=== PATIENT | male | born 1970 | race Caucasian/White ===

== ENCOUNTER → 2016-09-27 | Outpatient (CLI) | payer BC ==
[2016-09-27 07:20] LABS: Basophils # (A) 0.1 k/uL (0-0.2); Basophils % (A) 2 %; CH 30.6; CHCM 33.7; Eosinophils # (A) 0.2 k/uL (0-0.7); Eosinophils % (A) 2 %; HCT 46.7 % (39.0-53.0); HDW 2.46; Luc # (Auto) 0.24; Luc % (Auto) 4; Lymphocytes # (A) 1.8 k/uL (1.0-4.8); Lymphocytes % (A) 29 %; MCH 31.4 pg (25.0-35.0); MCHC 34.4 g/dL (31.0-37.0); MCV 91.3 fL (80.0-100.0); Mean Platelet Volume 7.7; Monocytes # (A) 0.5 k/uL (0-1.0); Monocytes % (A) 7 %; Neutrophils # (A) 3.4 k/uL (1.3-7.7); Neutrophils % (A) 55 %; RBC 5.11 m/uL (4.30-5.90); RDW 13.1 % (11.5-15.5); WBC 6.1 k/uL (3.8-10.6); WBC (Perox) 6.39
[2016-09-27 10:34] LABS: ALT 35 U/L (21-72); AST 29 U/L (17-59); Alkaline Phosphatase 74 U/L (38-126); Anion Gap 10 mmol/L; Blood Urea Nitrogen 15 mg/dL (9-20); Calcium 9.4 mg/dL (8.4-10.2); Carbon Dioxide 25 mmol/L (22-30); Chloride 108 mmol/L (98-107); Cholesterol 164 mg/dL (<200); Glucose 97 mg/dL (74-99); HDL Cholesterol 37 mg/dL (40-60); Non-African American GFR(MDRD) >60 (>60 ml/min/1.73 sqM); Potassium 4.9 mmol/L (3.5-5.1); Sodium 143 mmol/L (137-145); Total Bilirubin 0.8 mg/dL (0.2-1.3); Total Protein 7.1 g/dL (6.3-8.2); Triglycerides 180 mg/dL (<150)
[2016-09-27 11:23] LABS: Vitamin B12 367 pg/mL (239-931)
== END | disposition home or self-care (01) ==
LOC: LABWHC1 06:38
PROVIDERS: ATTEND Family Medicine
DX: E78.5 Hyperlipidemia, unspecified (principal); I10 Essential (primary) hypertension; R53.83 Other fatigue
CPT/HCPCS: 36415; 80053; 80061; 82607; 84403; 84443; 85025

== ENCOUNTER → 2017-04-12 | Outpatient (CLI) | payer BC ==
[2017-04-12 07:36] LABS: ALT 39 U/L (21-72); AST 27 U/L (17-59); Alkaline Phosphatase 68 U/L (38-126); Anion Gap 10 mmol/L; Blood Urea Nitrogen 16 mg/dL (9-20); Calcium 9.6 mg/dL (8.4-10.2); Carbon Dioxide 24 mmol/L (22-30); Chloride 107 mmol/L (98-107); Cholesterol 169 mg/dL (<200); Glucose 107 mg/dL (74-99); HDL Cholesterol 42 mg/dL (40-60); Non-African American GFR(MDRD) >60 (>60 ml/min/1.73 sqM); Potassium 5.1 mmol/L (3.5-5.1); Sodium 141 mmol/L (137-145); Total Bilirubin 0.4 mg/dL (0.2-1.3); Total Protein 7.3 g/dL (6.3-8.2)
== END | disposition home or self-care (01) ==
LOC: LABWHC1 06:36
PROVIDERS: ATTEND Family Medicine
DX: E78.5 Hyperlipidemia, unspecified (principal)
CPT/HCPCS: 36415; 80053; 80061

== ENCOUNTER → 2018-01-02 | Outpatient (CLI) | payer BC ==
[2018-01-02 07:31] LABS: Basophils # (A) 0.1 k/uL (0-0.2); Basophils % (A) 1 %; Eosinophils # (A) 0.1 k/uL (0-0.7); Eosinophils % (A) 2 %; HGB 16.1 gm/dL (13.0-17.5); Lymphocytes # (A) 1.7 k/uL (1.0-4.8); Lymphocytes % (A) 20 %; MCH 30.1 pg (25.0-35.0); MCHC 33.6 g/dL (31.0-37.0); MCV 89.6 fL (80.0-100.0); Mean Platelet Volume 7.1; Monocytes # (A) 0.7 k/uL (0-1.0); Monocytes % (A) 8 %; Neutrophils # (A) 5.5 k/uL (1.3-7.7); Neutrophils % (A) 68 %; Platelet Count 256 k/uL (150-450); RBC 5.35 m/uL (4.30-5.90); RDW 12.9 % (11.5-15.5); WBC 8.2 k/uL (3.8-10.6)
[2018-01-02 07:38] LABS: ALT 35 U/L (21-72); AST 30 U/L (17-59); Albumin 4.5 g/dL (3.5-5.0); Alkaline Phosphatase 75 U/L (38-126); Anion Gap 12 mmol/L; Blood Urea Nitrogen 15 mg/dL (9-20); Calcium 9.5 mg/dL (8.4-10.2); Carbon Dioxide 25 mmol/L (22-30); Chloride 105 mmol/L (98-107); Cholesterol 176 mg/dL (<200); Glucose 112 mg/dL (74-99); HDL Cholesterol 43 mg/dL (40-60); LDL Cholesterol,Calculated 110 mg/dL (0-99); Potassium 4.7 mmol/L (3.5-5.1); Sodium 142 mmol/L (137-145); Total Bilirubin 0.5 mg/dL (0.2-1.3); Total Protein 7.2 g/dL (6.3-8.2); Triglycerides 114 mg/dL (<150)
== END | disposition home or self-care (01) ==
LOC: LABWHC1 06:33
PROVIDERS: ATTEND Family Medicine
DX: E78.5 Hyperlipidemia, unspecified (principal); I10 Essential (primary) hypertension
CPT/HCPCS: 36415; 80053; 80061; 85025

== ENCOUNTER → 2018-12-22 | Outpatient (CLI) | payer BC ==
[2018-12-22 11:28] LABS: African American GFR (CKD) 121.6 (60.0-200.0); Anion Gap 7.8 mmol/L (4.00-12.00); BUN/Creat Ratio 21.25 Ratio (12.00-20.00); Calcium 9.5 mg/dL (8.7-10.3); Carbon Dioxide 24.2 mmol/L (21.6-31.8); Potassium 5.3 mmol/L (3.5-5.5)
== END | disposition home or self-care (01) ==
LOC: LABWHC1 06:42
PROVIDERS: ATTEND Nurse Practitioner Adult Health
DX: I10 Essential (primary) hypertension (principal); E78.5 Hyperlipidemia, unspecified; F41.1 Generalized anxiety disorder
CPT/HCPCS: 36415; 80048; 80061

== ENCOUNTER 2020-03-31 10:44 | Day surgery (SDC) | payer BC ==
[2020-03-28 15:47] VITALS: BMI 30.4
[~2020-03-31 10:44] MED LIST: LACTATED RINGERS 1,000 ML IV SCH
[2020-03-31 11:03] VITALS: RESP 16; TEMP 97.7
[2020-03-31] MEDS ORDERED: PROPOFOL 10 MG/ML 20 ML VIAL IV ONE (11:21)
--- NOTE | 2020-03-31 11:52 | P.OP ---
Date of Procedure: 03/31/20 Preoperative Diagnosis: Screening Postoperative Diagnosis: Rectal polyp Procedure(s) Performed: Colonsocopy with hot snare polypectomy Anesthesia: MAC Surgeon: Harman Dickens Condition: stable Disposition: same day Description of Procedure: Patient is brought operative suite placed in left lateral decubitus position with sedation per department of anesthesia rectal exam was performed no gross abnormalities are noted scope was passed from the rectum to the cecum with the slowly withdrawn make sure to visualize all ingram the colon on the way out there is no abnormalities until the rectum there is one small polyp noted in the rectum this was removed via hot snare polypectomy. Scope was retroflexed no abnormalities were noted the scope was withdrawn patient artery procedure well no apparent complications he'll need a repeat colonoscopy in 5 years
[2020-03-31 12:15] VITALS: BP 117/78; PULSE 73
--- NOTE | 2020-04-04 10:56 | CDI ---
Date: 04.04.2020 CDS/Drilling Field Professional Name: Stacey Hobson Phone: If any questions, call Margo Tipton Fabrication Manager at [phone] Patient Name: Johnathan Mejía Admit Date 03.31.20 Discharge Date: 03.31.20 ATTENTION: The [facility] Coding Staff appreciate your assistance in clarifying documentation. Please respond to the clarification below the line at the bottom and electronically sign. The [facility] Coding staff will review the response and follow-up if needed. Please note: Queries are made part of the Legal Health Record. If you have any questions, please contact the Fabrication Manager. Dear Dr. Dickens In order to code to the greatest specificity and for the greatest reimbursement I need the following information: You removed a rectal polyp with hot snare poylpectomy, did you send this to pathology for review? Thank you for your kind consideration. Yes should have been sent. CARA
--- NOTE | 2020-04-13 11:48 | P.HPIHPCON ---
History of Present Illness H&P Date: 03/31/20 Screening colonoscopy Consent for Procedure: I have explained the operation/procedure to the patient, including the risks, benefits, side effects, alternative therapies (including not receiving the proposed treatment or service), the likelihood of the patient achieving his/her goals, and potential recuperation problems for the procedure/sedation/analgesia, as well as any blood products, if indicated. I also explained to the patient the risks, benefits and side effects of the alternatives, as well as the risks related to not receiving the proposed procedure, care, treatment, or services. Past Medical History Past Medical History: Hyperlipidemia, Hypertension History of Any Multi-Drug Resistant Organisms: None Reported Past Surgical History: Orthopedic Surgery Additional Past Surgical History / Comment(s): L shoulder surgery, L ear surgery as a child. [place] teeth. Past Anesthesia/Blood Transfusion Reactions: No Reported Reaction Smoking Status: Current every day smoker - Past Family History Mother Family Medical History: Cancer Additional Family Medical History / Comment(s): Kidney, Breast Medications and Allergies Home Medications Medication Instructions Recorded Confirmed Type ALPRAZolam [Xanax] 0.5 mg PO HS 03/28/20 03/31/20 History Aspirin [Adult Low Dose Aspirin EC] 81 mg PO DAILY 03/28/20 03/28/20 History Atorvastatin [Lipitor] 40 mg PO DAILY 03/28/20 03/31/20 History Nsaid (Unknown Dose) 1 tab PO DAILY 03/28/20 03/28/20 History Propranolol HCl [Inderal LA] 125 mg PO DAILY 03/28/20 03/31/20 History amLODIPine [Norvasc] 10 mg PO DAILY 03/28/20 03/31/20 History buPROPion [Wellbutrin] 75 mg PO DAILY 03/28/20 03/31/20 History Allergies Allergy/AdvReac Type Severity Reaction Status Date / Time Penicillins Allergy Nausea & Verified 03/31/20 10:55 Vomiting Surgical - Exam Osteopathic Statement: *. No significant issues noted on an osteopathic structural exam other than those noted in the History and Physical/Consult. Vital Signs Temp Pulse Resp BP Pulse Ox 97.7 F 70 16 131/76 97 03/31/20 10:59 03/31/20 10:59 03/31/20 10:59 03/31/20 10:59 03/31/20 10:59 - General well developed, well nourished, no distress - Respiratory normal expansion, normal respiratory effort - Abdomen Abdomen: soft, non tender Assessment and Plan Assessment: screening colonoscopy Plan: screening colonoscopy
== END 2020-03-31 12:43 | disposition home or self-care (01) ==
LOC: ORWHC2ENDO 10:44
PROVIDERS: ATTEND Student in an Organized Health Care Education/Training Program
DX: Z12.11 Encounter for screening for malignant neoplasm of colon (principal); K62.1 Rectal polyp; E78.5 Hyperlipidemia, unspecified; I10 Essential (primary) hypertension; F17.200 Nicotine dependence, unspecified, uncomplicated; Z98.890 Other specified postprocedural states; Z79.899 Other long term (current) drug therapy; Z79.82 Long term (current) use of aspirin; Z79.1 Long term (current) use of non-steroidal anti-inflammatories (NSAID); Z88.0 Allergy status to penicillin; Z80.51 Family history of malignant neoplasm of kidney; Z80.3 Family history of malignant neoplasm of breast
CPT/HCPCS: 45385; J2704

== ENCOUNTER → 2020-07-06 | Outpatient (CLI) | payer BC ==
--- NOTE | 2020-07-06 14:17 | XR ---
EXAMINATION TYPE: XR skull complete DATE OF EXAM: 07/06/2020 COMPARISON: NONE HISTORY: Possible foreign body within the inferior TECHNIQUE: 4 views submitted FINDINGS: Osseous structures intact. No acute fracture. No metallic foreign body identified. IMPRESSION: No metallic foreign body identified.
== END | disposition home or self-care (01) ==
LOC: RADXRMAIN 13:54
PROVIDERS: ATTEND Orthopaedic Surgery
DX: Z03.89 Encounter for observation for other suspected diseases and conditions ruled out (principal); Z18.10 Retained metal fragments, unspecified
CPT/HCPCS: 70260

== ENCOUNTER → 2021-03-09 | Outpatient (CLI) | payer BC ==
[2021-03-09 20:04] LABS: African American GFR (CKD) 80.7 (60.0-200.0); Albumin 4.6 g/dL (3.80-4.90); Albumin/Globulin Ratio 1.92 (1.60-3.17); Anion Gap 10.2 mmol/L (4.00-12.00); BUN/Creat Ratio 16.67 Ratio (12.00-20.00); Calcium 9.2 mg/dL (8.7-10.3); Carbon Dioxide 21.8 mmol/L (21.6-31.8); Chol/HDL Ratio 5.38; Globulin 2.4 g/dL (1.6-3.3); Non-African American GFR(CKD) 69.6 (60.0-200.0); PSA Annual Screen 0.6 ng/mL (0.0-4.0); Total Bilirubin 0.5 mg/dL (0.3-1.2)
== END | disposition home or self-care (01) ==
LOC: LABWHC1 07:04
PROVIDERS: ATTEND Nurse Practitioner Adult Health
DX: Z00.00 Encounter for general adult medical examination without abnormal findings (principal); E78.2 Mixed hyperlipidemia; I10 Essential (primary) hypertension; M13.0 Polyarthritis, unspecified
CPT/HCPCS: 80061; 80053; 83721; 36415; G0103

== ENCOUNTER → 2021-08-04 | Outpatient (CLI) | payer BC ==
[2021-08-04 19:50] LABS: Basophils # (A) 0.09 X 10*3/uL (0.00-0.10); Basophils % (A) 1.1 %; Eosinophils # (A) 0.13 X 10*3/uL (0.04-0.35); Eosinophils % (A) 1.6 %; HCT 49.9 % (39.6-50.0); HGB 15.8 g/dL (13.0-17.0); Lymphocytes # (A) 2.97 X 10*3/uL (0.90-5.00); Lymphocytes % (A) 36.8 %; MCH 29.9 pg (27.0-32.0); MCHC 31.7 g/dL (32.0-37.0); MCV 94.5 fL (80.0-97.0); Mean Platelet Volume 10.4 fL (9.5-12.2); Monocytes # (A) 0.76 X 10*3/uL (0.20-1.00); Monocytes % (A) 9.4 %; Neutrophils # (A) 4.11 X 10*3/uL (1.80-7.70); Neutrophils % (A) 50.9 %; Platelet Count 277 X 10*3/uL (140-440); RBC 5.28 X 10*6/uL (4.40-5.60); RDW 13.6 % (11.5-14.5); WBC 8.08 X 10*3/uL (4.50-10.00)
[2021-08-04 20:08] LABS: ALT 23 U/L (10-49); AST 26 U/L (14-35); African American GFR (CKD) 114.2 (60.0-200.0); Albumin 4.8 g/dL (3.8-4.9); Albumin/Globulin Ratio 1.71 (1.60-3.17); Alkaline Phosphatase 73 U/L (41-126); BUN/Creat Ratio 12.78 Ratio (12.00-20.00); Blood Urea Nitrogen 11.5 mg/dL (9.0-27.0); Calcium 9.6 mg/dL (8.7-10.3); Carbon Dioxide 23.4 mmol/L (20.0-27.5); Chloride 103 mmol/L (96-109); Chol/HDL Ratio 5.08 Ratio; Globulin 2.8 g/dL (1.6-3.3); Glucose 79 mg/dL (70-110); LDL Cholesterol,Calculated 106.6 mg/dL (0.0-131.0); Non-African American GFR(CKD) 98.5 (60.0-200.0); Potassium 4.8 mmol/L (3.5-5.5); Sodium 138 mmol/L (135-145); Total Protein 7.6 g/dL (6.2-8.2)
== END | disposition home or self-care (01) ==
LOC: LABWHC1 14:22
PROVIDERS: ATTEND Internal Medicine
DX: E78.2 Mixed hyperlipidemia (principal)
CPT/HCPCS: 36415; 80053; 80061; 84443; 85025

== ENCOUNTER → 2022-06-11 | Outpatient (CLI) | payer BC ==
[2022-06-11 10:44] LABS: Basophils % (A) 1.2 %; Eosinophils % (A) 2.4 %; HCT 49.4 % (39.6-50.0); Immature Grans, Automated 0.6 %; Lymphocytes # (A) 2.15 X 10*3/uL (0.90-5.00); Lymphocytes % (A) 26.3 %; MCH 30.8 pg (27.0-32.0); MCHC 32.4 g/dL (32.0-37.0); MCV 95.2 fL (80.0-97.0); Mean Platelet Volume 10.7 fL (9.5-12.2); Monocytes # (A) 0.76 X 10*3/uL (0.20-1.00); Monocytes % (A) 9.3 %; NRBC Per 100 WBC 0 /100 WBCS (0.0-0.0); Neutrophils # (A) 4.93 X 10*3/uL (1.80-7.70); Neutrophils % (A) 60.2 %; Platelet Count 285 X 10*3/uL (140-440); RBC 5.19 X 10*6/uL (4.40-5.60); RDW 13.8 % (11.5-14.5); WBC 8.19 X 10*3/uL (4.50-10.00)
[2022-06-11 11:02] LABS: ALT 26 U/L (10-49); AST 26 U/L (14-35); African American GFR (CKD) 115.2 (60.0-200.0); Albumin 4.6 g/dL (3.8-4.9); Alkaline Phosphatase 74 U/L (41-126); BUN/Creat Ratio 12.93 Ratio (12.00-20.00); Blood Urea Nitrogen 11.2 mg/dL (9.0-27.0); Calcium 9.6 mg/dL (8.7-10.3); Carbon Dioxide 22.9 mmol/L (20.0-27.5); Chloride 102 mmol/L (96-109); Chol/HDL Ratio 5.56 Ratio; Globulin 2.6 g/dL (1.6-3.3); Glucose 89 mg/dL (70-110); LDL Cholesterol,Calculated 117.1 mg/dL (0.0-131.0); Non-African American GFR(CKD) 99.4 (60.0-200.0); Potassium 4.9 mmol/L (3.5-5.5); Sodium 138 mmol/L (135-145); Total Protein 7.2 g/dL (6.2-8.2)
== END | disposition home or self-care (01) ==
LOC: LABWHC1 07:03
PROVIDERS: ATTEND Internal Medicine
DX: Z12.5 Encounter for screening for malignant neoplasm of prostate (principal); I10 Essential (primary) hypertension
CPT/HCPCS: 36415; 80053; 80061; 84153; 84439; 84443; 85025

== ENCOUNTER → 2023-08-20 | Outpatient (CLI) | payer BC ==
--- NOTE | 2023-08-20 20:54 | CTL ---
CORRECTED IMPRESSION: 1. LungRADS 2, benign. A solitary 3 mm right upper lobe pulmonary nodule on baseline screening. 2. COPD with mild emphysema. 3. Moderate to severe hepatic steatosis. Appropriate clinical management is advised. CT LUNG RAD AND CT CHEST RECOMMENDATION: Lung-Rad 2 Benign Appearance or Behavior: Continue annual sc reening with LDCT in 12 months. S Modifier (other clinically significant findings): S, see above regarding the patient's fatty liver.
== END | disposition home or self-care (01) ==
LOC: RADCTMAIN 16:11
PROVIDERS: ATTEND Internal Medicine
DX: Z12.2 Encounter for screening for malignant neoplasm of respiratory organs (principal); F17.210 Nicotine dependence, cigarettes, uncomplicated; R91.1 Solitary pulmonary nodule; J44.9 Chronic obstructive pulmonary disease, unspecified; J43.9 Emphysema, unspecified; K76.0 Fatty (change of) liver, not elsewhere classified
CPT/HCPCS: 71271

== ENCOUNTER → 2023-08-24 | Outpatient (CLI) | payer BC ==
[2023-08-24 13:19] LABS: Basophils % (A) 1.5 %; Eosinophils # (A) 0.14 X 10*3/uL (0.04-0.35); Eosinophils % (A) 2.1 %; HCT 48.2 % (39.6-50.0); HGB 15.9 g/dL (13.0-17.0); Lymphocytes # (A) 2.07 X 10*3/uL (0.90-5.00); Lymphocytes % (A) 30.7 %; MCH 30.5 pg (27.0-32.0); MCV 92.3 FL (80.0-97.0); Mean Platelet Volume 10.1 FL (9.5-12.2); Monocytes # (A) 0.73 X 10*3/uL (0.20-1.00); Monocytes % (A) 10.8 %; NRBC Per 100 WBC 0 X 10*3/uL (0.00-0.01); Neutrophils % (A) 54.8 %; Platelet Count 283 X 10*3/uL (140-440); RBC 5.22 X 10*6/uL (4.40-5.60); RDW 13.7 % (11.5-14.5); WBC 6.75 X 10*3/uL (4.50-10.00)
[2023-08-24 14:25] LABS: Chol/HDL Ratio 5.66 Ratio
[2023-08-24 14:26] LABS: ALT 27 U/L (10-49); AST 25 U/L (14-35); Albumin 4.6 g/dL (3.8-4.9); Alkaline Phosphatase 61 U/L (41-126); Blood Urea Nitrogen 12.6 mg/dL (9.0-27.0); Calcium 10.2 mg/dL (8.7-10.3); Chloride 102 mmol/L (96-109); Globulin 2.7 g/dL (1.6-3.3); Glucose 100 mg/dL (70-110); LDL Cholesterol,Calculated 121.2 mg/dL (0.0-131.0); Potassium 5.4 mmol/L (3.5-5.5); Sodium 140 mmol/L (135-145); Total Bilirubin 0.2 mg/dL (0.3-1.2); Total Protein 7.3 g/dL (6.2-8.2)
[2023-08-24 14:34] LABS: PSA Annual Screen 0.589 ng/mL (0.000-4.000)
== END | disposition home or self-care (01) ==
LOC: LABWHC1 08:04
PROVIDERS: ATTEND Internal Medicine
DX: Z00.00 Encounter for general adult medical examination without abnormal findings (principal); Z12.5 Encounter for screening for malignant neoplasm of prostate; Z11.59 Encounter for screening for other viral diseases; E78.2 Mixed hyperlipidemia
CPT/HCPCS: 86803; 80061; 80053; 84443; 85025; 36415; G0103

== ENCOUNTER → 2024-09-10 | Outpatient (CLI) | payer BC ==
[2024-09-10 10:18] LABS: Basophils # (A) 0.12 X 10*3/uL (0.00-0.10); Basophils % (A) 1.8 %; Eosinophils # (A) 0.18 X 10*3/uL (0.04-0.35); Eosinophils % (A) 2.7 %; HCT 47.8 % (39.6-50.0); HGB 15.4 g/dL (13.0-17.0); Lymphocytes # (A) 2.06 X 10*3/uL (0.90-5.00); MCH 29.8 pg (27.0-32.0); MCHC 32.2 g/dL (32.0-37.0); MCV 92.5 FL (80.0-97.0); Mean Platelet Volume 10.7 FL (9.5-12.2); Monocytes # (A) 0.75 X 10*3/uL (0.20-1.00); Monocytes % (A) 11.3 %; NRBC Per 100 WBC 0 X 10*3/uL (0.00-0.01); Neutrophils % (A) 52.7 %; Platelet Count 281 X 10*3/uL (140-440); RBC 5.17 X 10*6/uL (4.40-5.60); RDW 13.8 % (11.5-14.5); WBC 6.64 X 10*3/uL (4.50-10.00)
[2024-09-10 15:12] LABS: ALT 29 U/L (10-49); AST 28 U/L (14-35); Albumin 4.4 g/dL (3.8-4.9); Albumin/Globulin Ratio 1.63 Ratio (1.60-3.17); Alkaline Phosphatase 62 U/L (41-126); BUN/Creat Ratio 17.78 Ratio (12.00-20.00); Calcium 9.7 mg/dL (8.7-10.3); Carbon Dioxide 24.9 mmol/L (21.6-31.8); Chloride 104 mmol/L (96-109); Chol/HDL Ratio 6.16 Ratio; Globulin 2.7 g/dL (1.6-3.3); Glucose 102 mg/dL (70-110); LDL Cholesterol,Calculated 101.2 mg/dL (0.0-131.0); Potassium 4.8 mmol/L (3.5-5.5); Sodium 140 mmol/L (135-145); Total Bilirubin 0.4 mg/dL (0.3-1.2); Total Protein 7.1 g/dL (6.2-8.2)
== END | disposition home or self-care (01) ==
LOC: LABWHC1 07:03
PROVIDERS: ATTEND Internal Medicine
DX: Z00.00 Encounter for general adult medical examination without abnormal findings (principal)
CPT/HCPCS: 36415; 80053; 80061; 84443; 85025

== ENCOUNTER → 2024-09-16 | Outpatient (CLI) | payer BC ==
--- NOTE | 2024-09-18 17:10 | MR ---
EXAMINATION TYPE: MR shoulder RT wo con DATE OF EXAM: 09/16/2024 4:50 PM COMPARISON: 09/09/2024 CLINICAL INDICATION: Male, 53 years old with history of M25.511,M25.512; PHH, RT shoulder pain, RT sh oulder Lump anterior TECHNIQUE: Multi planar, multi sequence imaging was performed of the shoulder including: Axial and coronal zana n density fat-saturated sequences, T2 fat-saturated sagittal sequence, and T1-weighted imaging. No G adolinium was given. RT shoulder pain, RT shoulder Lump anterior FINDINGS: Supraspinatus/Infraspinatus tendon: Full-thickness rotator cuff tear measuring up to 3.9 cm AP invol ving the majority of the supraspinatus and infraspinatus fibers retraction up to 4.8 cm. Subscapularis tendon: Subscapularis articular surface tear Teres minor tendon: Intact Long head biceps tendon: Partial tear of the ligaments of the biceps tendon near its origin. The long head of the biceps is perched on the lesser tuberosity. Acromioclavicular joint: Moderate osteoarthrosis. Undersurface spurring impinging on the suprasp inatus tendon. Moderate effusion with dilated phenomenon. Glenohumeral joint joint space narrowing with mild cartilage loss and osteophytes on the glenoid and humeral head. Glenoid labrum: Degenerative labrum with superior labral tear. Muscle volume: Atrophy changes of the supraspinatus and infraspinous muscles Bone marrow: Subchondral cystic change in the insertion of the rotator cuff on the humeral head. Subchondral cystic change of the AC joint. Soft tissues: [place] phenomenon, no enlarged lymph nodes. Joint/bursal fluid: Bursal fluid within the subacromial space compatible with full-thickness rota tor cuff tear. IMPRESSION: 1. Full thickness complete rotator cuff tear with atrophy changes of the supraspinatus and infraspin atus muscles and 4.8 cm of retraction. 2. Lump correlates with moderate to severe degeneration changes AC joint with joint effusion and Gey ser phenomenon. 3. Partial tear of the origin of the biceps tendon near its origin with tendinosis. The bicipital te ndon also is perched on the lesser tuberosity which is compatible of subscapularis tear with tendinos is. 4. Degenerative labrum with superior labral tear. [facility], , 09/18/2024 5:08 PM
--- NOTE | 2024-09-18 17:44 | MR ---
EXAMINATION TYPE: MR shoulder LT wo con DATE OF EXAM: 09/16/2024 4:52 PM COMPARISON: 09/09/2024. CLINICAL INDICATION: Male, 53 years old with history of M25.511,M25.512; PHH, LT shoulder pain and we akness x5 yrs, Hx LT shoulder surgery for FX collarbone and muscle tear 1997 TECHNIQUE: Multi planar, multi sequence imaging was performed of the shoulder including: Axial and coronal zana n density fat-saturated sequences, T2 fat-saturated sagittal sequence, and T1-weighted imaging. No G adolinium was given. LT shoulder pain and weakness x5 yrs, Hx LT shoulder surgery for FX collarbone and muscle tear 1997 FINDINGS: Supraspinatus, Infraspinatus tendon: Full-thickness rotator cuff tear with 6.7 cm retraction extendin g anterior-posterior up to 4.4 cm involving nearly supraspinatus fibers and majority of the infraspin atus fibers. Subscapularis tendon: Complete tear with what is thought to be up to 2.0 cm of retraction of the tendon. There is associated muscle atrophy Teres minor tendon: Intact Long head biceps tendon: Increased signal with longitudinal tear poorly visualized inserting onto the glenoid due to extensive degeneration with high riding humeral head and the acetabulum. Acromioclavicular joint: Severe osteoarthrosis. Undersurface spurring impinging on the supraspin atus tendon. Small effusion. Glenohumeral joint: Moderate osteoarthrosis with osteophyte formation acetabularization of the gl enoid in this acetabulum. Narrowing of the articular surface. Small effusion. Glenoid labrum: Degenerative with anterior and superior degeneration Muscle volume: Severe atrophy changes of the infraspinatus and moderate severe atrophy of the sup raspinatus muscles. Atrophy changes that are at least moderate to severe of the subscapularis. Bone marrow: Subchondral cystic change worse around the origin of the rotator cuff muscles on the humeral head around the glenoid and AC joint.. Soft tissues: No significant finding. Joint/bursal fluid: Subacromial bursal fluid from full-thickness rotator cuff tear. IMPRESSION: 1. Degenerative labrum with suspected anterior and superior tear with acetabularization of the gleno id and acromion. 2. Full-thickness rotator cuff tear with retraction up to 6.7 cm of the supraspinous tendon there is associated severe muscle atrophy of the infraspinatus and moderate to severe atrophy of the supraspi natus muscles. 3. Complete tear of the subscapularis tendon with severe atrophy changes of the subscapularis muscle [facility], , 09/18/2024 5:41 PM
== END | disposition home or self-care (01) ==
LOC: RADMRIMAIN 14:55
PROVIDERS: ATTEND Orthopaedic Surgery
DX: M75.121 Complete rotator cuff tear or rupture of right shoulder, not specified as traumatic (principal); M25.411 Effusion, right shoulder; M67.813 Other specified disorders of tendon, right shoulder; M19.012 Primary osteoarthritis, left shoulder; M75.122 Complete rotator cuff tear or rupture of left shoulder, not specified as traumatic

== ENCOUNTER → 2024-11-09 | Outpatient (CLI) | payer BC ==
[2024-11-09 15:43] LABS: Basophils # (A) 0.12 X 10*3/uL (0.00-0.10); Basophils % (A) 1.3 %; Eosinophils # (A) 0.27 X 10*3/uL (0.04-0.35); HCT 48.1 % (39.6-50.0); HGB 15.7 g/dL (13.0-17.0); Lymphocytes # (A) 2.82 X 10*3/uL (0.90-5.00); Lymphocytes % (A) 31.4 %; MCH 30.3 pg (27.0-32.0); MCHC 32.6 g/dL (32.0-37.0); MCV 92.9 FL (80.0-97.0); Mean Platelet Volume 10.6 FL (9.5-12.2); Monocytes # (A) 0.88 X 10*3/uL (0.20-1.00); Monocytes % (A) 9.8 %; NRBC Per 100 WBC 0 X 10*3/uL (0.00-0.01); Neutrophils # (A) 4.86 X 10*3/uL (1.80-7.70); Neutrophils % (A) 54.1 %; Platelet Count 265 X 10*3/uL (140-440); RBC 5.18 X 10*6/uL (4.40-5.60); RDW 13.9 % (11.5-14.5); WBC 8.99 X 10*3/uL (4.50-10.00)
[2024-11-09 16:34] LABS: Potassium 5.2 mmol/L (3.5-5.5)
[2024-11-09 16:35] LABS: Anion Gap 11.6 mmol/L (4.00-12.00); Carbon Dioxide 21.4 mmol/L (21.6-31.8)
== END | disposition home or self-care (01) ==
LOC: LABWHC1 08:14
PROVIDERS: ATTEND Orthopaedic Surgery
DX: Z01.818 Encounter for other preprocedural examination (principal); M75.41 Impingement syndrome of right shoulder
CPT/HCPCS: 36415; 80051; 85025; 93005